=== PATIENT | female | born 2000 | race African-American/Black ===

== ENCOUNTER 2024-01-12 14:42 | Emergency (ER) | payer OTHER ==
[2024-01-12] MEDS ORDERED: ONDANSETRON 4 MG/2 ML VIAL ONE (15:13)
[2024-01-12] MEDS ORDERED: NA CHLORIDE 0.9% 1,000 ML ONE (15:13)
[2024-01-12 15:31] LABS: Absolute Lymphocytes (CBC) 2.8 K/uL (0.7-4.9); Absolute Monocytes 0.5 K/uL (0.1-1.3); Absolute Neutrophil 3.5 K/uL (1.8-8.0); Basophils % 0.5 % (0-1.3); Eosinophils % 0.7 % (0-4.4); Hematocrit 38.3 % (36.0-45.0); Hemoglobin 12.6 g/dL (12.0-15.0); Lymphocytes % 40.4 % (15.3-44.8); MCH 29.9 pg (27.0-35.0); MCHC 32.8 g/dL (32.0-36.0); MCV 91.4 fL (80-100); Monocytes % 7.1 % (3.3-12.3); Neutrophils % 51.3 % (41.7-73.7); Nucleated Red Blood Cells % 0.2 % (0-0); Platelets 386 thou/uL (152-406); RBC Red Blood Cell Count 4.19 M/uL (3.86-4.86); Red Cell Distribution Width 13.6 % (12.1-15.2)
[2024-01-12 15:53] LABS: Specific Gravity 1.026 (1.005-1.030); Urine Bacteria <20 /HPF (<20); Urine Bilirubin NEGATIVE (Negative); Urine Blood Negative (Negative); Urine Clarity Extremely Turbid (Clear); Urine Color Light-Yellow (Yellow); Urine Culture Reflex Order NOT NEEDED; Urine Glucose NEGATIVE (Negative); Urine Ketones 1+ (Negative); Urine Microscopic Reflex YN ORDER UMIC; Urine Mucus 1+ /HPF (None Seen); Urine Nitrite NEGATIVE (Negative); Urine Protein NEGATIVE (Negative); Urine RBC <5 /HPF (None Seen); Urine Urobilinogen Normal (Normal); Urine WBC <5 /HPF (<5)
[2024-01-12 15:54] LABS: Specific Gravity 1.026 (1.005-1.030)
[2024-01-12 15:58] LABS: Albumin 4.2 g/dL (3.4-5.0); Albumin/Globulin Ratio 1.1 (1.1-1.8); Anion Gap 9.3 mEq/L (5.0-15.0); Bilirubin Total 0.4 mg/dL (0.2-1.0); Globulin 3.9 g/dL (2.3-3.5); Potassium 3.3 mEq/L (3.5-5.1); Protein, Total 8.1 g/dL (6.4-8.2)
--- NOTE | 2024-01-12 16:21 | RAD REPORT ---
EXAM DESCRIPTION: CTAbdomen Pelvis W Contrast - 01/12/2024 4:16 pm CLINICAL HISTORY: Abdominal pain. nv, bloody stool COMPARISON: <Comparisons> TECHNIQUE: Biphasic CT imaging of the abdomen and pelvis was performed with 100 ml non-ionic IV cont rast. All CT scans are performed using dose optimization technique as appropriate and may include automated exposure control or mA/KV adjustment according to patient size. FINDINGS: The lung bases are clear. The liver, spleen, pancreas, adrenal glands and kidneys are within normal limits. No bowel obstruction, free air, intra-abdominal free fluid or abscess. Trace pelvic free fluid. The a ppendix is normal. No evidence of significant lymphadenopathy. No suspicious bony findings. IMPRESSION: No acute intra-abdominal or pelvic finding.
--- NOTE | 2024-01-12 17:07 | ER ---
Nurse's Notes [facility] Name: Maddie Patrick Age: 23 yrs Sex: Female : 2000 Arrival Date: 01/12/2024 Time: 14:42 Bed 15 Private MD: Diagnosis: Rectal bleeding Presentation: 01/11 14:56 Chief complaint: Patient states: N/V diarrhea and bloody stools since last night. rs5 Coronavirus screen: At this time, the client does not indicate any symptoms associated with coronavirus-19. Ebola Screen: No symptoms or risks identified at this time. Initial Sepsis Screen: Does the patient meet any 2 criteria? No. Patient's initial sepsis screen is negative. Does the patient have a suspected source of infection? No. Patient's initial sepsis screen is negative. Risk Assessment: Do you want to hurt yourself or someone else? Patient reports no desire to harm self or others. Onset of symptoms was January 12, 2024. 14:56 Method Of Arrival: Ambulatory rs5 14:56 Acuity: SHANT 3 rs5 Historical: - Allergies: 14:58 No Known Allergies; rs5 - PMHx: 14:58 PCOS; rs5 - PSHx: 14:58 None; rs5 - Immunization history:: Adult Immunizations up to date. - Infectious Disease History:: Denies. - Social history:: Smoking status: Patient denies any tobacco usage or history of. - Family history:: not pertinent. Screenin:51 [facility] ED Fall Risk Assessment (Adult) History of falling in the last 3 months, rs5 including since admission No falls in past 3 months (0 pts) Confusion or Disorientation No (0 pts) Intoxicated or Sedated No (0 pts) Impaired Gait No (0 pts) Mobility Assist Device Used No (0 pt) Altered Elimination No (0 pt) Score/Fall Risk Level 0 - 2 = Low Risk Oriented to surroundings, Maintained a safe environment. Abuse screen: Denies threats or abuse. Nutritional screening: No deficits noted. Tuberculosis screening: No symptoms or risk factors identified. Assessment: 14:50 General: Appears in no apparent distress. comfortable, Behavior is calm, cooperative. rs5 Pain: Denies pain. Neuro: Level of Consciousness is awake, alert, obeys commands, Oriented to person, place, time, situation. Cardiovascular: Patient's skin is warm and dry. Respiratory: Airway is patent Respiratory effort is even, unlabored, Respiratory pattern is regular, symmetrical. GI: Abdomen is round non-distended, Abd is soft and non tender X 4 quads. Reports diarrhea, nausea, bloody stools x4 starting last night. : No signs and/or symptoms were reported regarding the genitourinary system. EENT: No signs and/or symptoms were reported regarding the EENT system. Derm: Skin is intact, Skin is dry, Skin is normal, Skin temperature is warm. Musculoskeletal: Range of motion: intact in all extremities. 16:01 Reassessment: Patient and/or family updated on plan of care and expected duration. Pain rs5 level reassessed. Patient is alert, oriented x 3, equal unlabored respirations, skin warm/dry/pink. Patient states feeling better. 16:56 Reassessment: No changes from previously documented assessment. rs5 Vital Signs: 14:56 BP 117 / 83; Pulse 80; Resp 17; Temp 97.8(O); Pulse Ox 99% on R/A; rs5 16:56 BP 120 / 81; Pulse 71; Resp 17; Pulse Ox 99% on R/A; rs5 ED Course: 14:46 Patient arrived in ED. ra3 14:47 Herrera Wells MD is Attending Physician. rt 14:51 Patient has correct armband on for positive identification. Placed in gown. Bed in low rs5 position. Call light in reach. Side rails up X2. 14:52 Hernesto Bañuelos, SERJIO is Primary Nurse. rs5 14:58 Triage completed. rs5 15:10 Inserted saline lock: 22 gauge in right antecubital area, using aseptic technique. rs5 Blood collected. Flushed with 10 mL NS. 15:10 No provider procedures requiring assistance completed. rs5 16:17 CT Abd/Pelvis - IV Contrast Only In Process Unspecified. EDMS 17:06 Donato Bran MD is Referral Physician. rt 17:15 IV discontinued, intact, bleeding controlled, No redness/swelling at site. Pressure rs5 dressing applied. Administered Medications: 15:15 Drug: NS 0.9% IV 1000 ml IV at 1 bolus Per protocol; 1000 mL bolus Route: IV; Rate: 1 rs5 bolus; Site: right antecubital; 15:30 Follow up: Response: No adverse reaction rs5 15:15 Drug: Ondansetron IVP 4 mg IVP once; over 2 minutes Route: IVP; Site: right antecubital;rs5 15:35 Follow up: Response: No adverse reaction; Nausea is decreased rs5 Medication: 16:57 VIS not applicable for this client. rs5 Outcome: 17:06 Discharge ordered by . rt 17:15 Discharged to home ambulatory, rs5 17:15 Condition: stable rs5 17:15 Discharge instructions given to patient, family, Instructed on discharge instructions, follow up and referral plans. Demonstrated understanding of instructions, follow-up care, 17:17 Patient left the ED. rs5 Signatures: Dispatcher [employer] EDMS Herrera Wells MD MD rt Hernesto Bañuelos RN RN rs5 Noa Selby ra3
--- NOTE | 2024-01-12 17:07 | EDPHYS ---
Physician Documentation [facility] Name: Maddie Patrick Age: 23 yrs Sex: Female : 2000 Arrival Date: 01/12/2024 Time: 14:42 Bed 15 Private MD: ED Physician Herrera Wells HPI: 01/11 20:00 This 23 yrs old Black Female presents to ER via Ambulatory with complaints of Diarrhea rt - bloody. 20:00 Patient presents to the ED with nausea. Patient states that she had dark red stools. rt Denies hematemesis. Reports mild abdominal cramping but denies other abdominal pains. Denies other acute complaints, symptoms are moderate in severity, no other aggravating or alleviating factors.. Historical: - Allergies: 14:58 No Known Allergies; rs5 - PMHx: 14:58 PCOS; rs5 - PSHx: 14:58 None; rs5 - Immunization history:: Adult Immunizations up to date. - Infectious Disease History:: Denies. - Social history:: Smoking status: Patient denies any tobacco usage or history of. - Family history:: not pertinent. ROS: 20:00 Constitutional: Negative for fever, chills, and weight loss, Neck: Negative for injury, rt pain, and swelling, Cardiovascular: Negative for chest pain, palpitations, and edema, Respiratory: Negative for shortness of breath, cough, wheezing, and pleuritic chest pain, MS/Extremity: Negative for injury and deformity, Skin: Negative for injury, rash, and discoloration, 20:00 Abdomen/GI: Positive for nausea, rectal bleeding, Exam: 20:00 Constitutional: This is a well developed, well nourished patient who is awake, alert, rt and in no acute distress. Head/Face: Normocephalic, atraumatic. Chest/axilla: Normal chest wall appearance and motion. Nontender with no deformity. No lesions are appreciated. Cardiovascular: Regular rate and rhythm with a normal S1 and S2. No gallops, murmurs, or rubs. Normal PMI, no JVD. No pulse deficits. Respiratory: Lungs have equal breath sounds bilaterally, clear to auscultation and percussion. No rales, rhonchi or wheezes noted. No increased work of breathing, no retractions or nasal flaring. Abdomen/GI: Soft, non-tender, with normal bowel sounds. No distension or tympany. No guarding or rebound. No evidence of tenderness throughout. Skin: Warm, dry with normal turgor. Normal color with no rashes, no lesions, and no evidence of cellulitis. MS/ Extremity: Pulses equal, no cyanosis. Neurovascular intact. Full, normal range of motion. Neuro: Awake and alert, GCS 15, oriented to person, place, time, and situation. Cranial nerves II-XII grossly intact. Motor strength 5/5 in all extremities. Sensory grossly intact. Cerebellar exam normal. Normal gait. Vital Signs: 14:56 BP 117 / 83; Pulse 80; Resp 17; Temp 97.8(O); Pulse Ox 99% on R/A; rs5 16:56 BP 120 / 81; Pulse 71; Resp 17; Pulse Ox 99% on R/A; rs5 MDM: 15:02 Patient medically screened. rt 20:00 Differential diagnosis: Colitis, diverticulitis, hemorrhoid bleed. Data reviewed: vital rt signs, nurses notes, lab test result(s), radiologic studies. Consideration of Admission/Observation Escalation of care including admission/observation considered. Stable vital signs, H\T\H stable, no signs of upper GI bleed, stable for outpatient care, will treat empirically for colitis despite lack of CT evidence.. I considered the following discharge prescriptions or medication management in the emergency department Medications were administered in the Emergency Department. See MAR. Independent interpretation of the following test(s) in the Emergency Department CT Scan: My interpretation is No bowel obstruction syndrome interpretation of CT scan images. Care significantly affected by the following chronic conditions: PCOS. Counseling: I had a detailed discussion with the patient and/or guardian regarding the historical points, exam findings, and any diagnostic results supporting the discharge/admit diagnosis, lab results, radiology results, the need for outpatient follow up, to return to the emergency department if symptoms worsen or persist or if there are any questions or concerns that arise at home. 01/11 15:08 Order name: CBC with Diff; Complete Time: 15:58 rt 01/11 15:08 Order name: CMP; Complete Time: 15:58 rt 01/11 15:08 Order name: Lipase; Complete Time: 15:58 rt 01/11 15:08 Order name: Test, Urine; Complete Time: 15:58 rt 08 15:08 Order name: Urinalysis w/ reflexes; Complete Time: 15:58 rt 0803 15:08 Order name: CT Abd/Pelvis - IV Contrast Only; Complete Time: 16:35 rt 08 15:08 Order name: IV Saline Lock; Complete Time: 15:37 rt 08 15:08 Order name: Labs collected and sent; Complete Time: 15:37 rt Administered Medications: 15:15 Drug: NS 0.9% IV 1000 ml IV at 1 bolus Per protocol; 1000 mL bolus Route: IV; Rate: 1 rs5 bolus; Site: right antecubital; 15:30 Follow up: Response: No adverse reaction rs5 15:15 Drug: Ondansetron IVP 4 mg IVP once; over 2 minutes Route: IVP; Site: right antecubital;rs5 15:35 Follow up: Response: No adverse reaction; Nausea is decreased rs5 Disposition Summary: 01/12/24 17:06 Discharge Ordered Notes: Location: Home rt Problem: new rt Symptoms: are unchanged rt Condition: Stable rt Diagnosis - Rectal bleeding rt Followup: rt - With: Donato Bran MD - When: 5 - 6 days - Reason: Discharge Instructions: - Discharge Summary Sheet rt Forms: - Medication Reconciliation Form rt - Antibiotic Education rt - Prescription Opioid Use rt - Patient Portal Instructions rt - Leadership Thank You Letter rt Prescriptions: - Flagyl 500 mg Oral tablet - take 1 tablet ORAL route every 8 hours for 7 days; 21 tablet; Refills: 0, rt Product Selection Permitted - Cipro 500 mg Oral Tablet - take 1 tablet ORAL route every 12 hours for 7 days; 14 tablet; Refills: 0, rt Product Selection Permitted Signatures: Dispatcher [employer] EDMS Herrera Wells MD MD rt Hernesto Bañuelos RN RN rs5 Corrections: (The following items were deleted from the chart) 15:09 15:09 CBC+H.LAB.BRZ ordered. EDMS EDMS 15:09 15:09 COMPREHENSIVE METABOLIC PANEL+C.LAB.BRZ ordered. EDMS EDMS 15:09 15:09 LIPASE+C.LAB.BRZ ordered. EDMS EDMS 15:09 15:09 Test, Urine+UC.LAB.BRZ ordered. EDMS EDMS 15:09 15:09 Urinalysis+U.LAB.BRZ ordered. EDMS EDMS 15:09 15:09 Abdomen Pelvis W Con+CT.RAD.BRZ ordered. EDMS EDMS
[2024-01-12 18:09] VITALS: TEMP 97.8; O2SAT 99
[2024-01-12 18:15] VITALS: BP 120/81
== END 2024-01-12 17:17 | disposition home or self-care (01) ==
LOC: ER 14:42
DX: K62.5 Hemorrhage of anus and rectum (principal)
CPT/HCPCS: 85025; 81001; 36415; 81025; 83690; 80053; 74177; 96374; 99284; Q9967; J2405; J7030

== ENCOUNTER 2024-01-15 00:09 | Emergency (ER) | payer OTHER ==
[2024-01-15] MEDS ORDERED: ONDANSETRON 4 MG/2 ML VIAL ONE (01:00)
[2024-01-15] MEDS ORDERED: KETOROLAC 30 MG/ML INJ ONE (01:00)
[2024-01-15] MEDS ORDERED: FAMOTIDINE 20 MG/2 ML VIAL IV ONE (01:01)
[2024-01-15] MEDS ORDERED: NA CHLORIDE 0.9% 1,000 ML ONE (01:01)
[2024-01-15 07:20] LABS: Renal Epithelial <5 /HPF (None Seen); Specific Gravity 1.023 (1.005-1.030); Sqamous Epithelial <5 /HPF (None Seen); Urine Bacteria None Seen /HPF (<20); Urine Bilirubin NEGATIVE (Negative); Urine Blood Negative (Negative); Urine Clarity Clear (Clear); Urine Color Light-Yellow (Yellow); Urine Culture Reflex Order NOT NEEDED; Urine Glucose NEGATIVE (Negative); Urine Ketones TRACE (Negative); Urine Microscopic Reflex YN ORDER UMIC; Urine Mucus Slight /HPF (None Seen); Urine Nitrite NEGATIVE (Negative); Urine Protein NEGATIVE (Negative); Urine RBC None Seen /HPF (None Seen); Urine Urobilinogen Normal (Normal); Urine WBC <5 /HPF (<5); Urine pH 6.5 (5.0-7.0)
[2024-01-15 07:23] LABS: Albumin 4.2 g/dL (3.4-5.0); Albumin/Globulin Ratio 1.2 (1.1-1.8); Anion Gap 5.2 mEq/L (5.0-15.0); Bilirubin Total 0.4 mg/dL (0.2-1.0); Globulin 3.4 g/dL (2.3-3.5); Potassium 3.2 mEq/L (3.5-5.1); Protein, Total 7.6 g/dL (6.4-8.2)
[2024-01-15 07:32] LABS: Absolute Basophils 0.1 K/uL (0-0.5); Absolute Eosinophils 0.1 K/uL (0-0.5); Absolute Lymphocytes (CBC) 3.3 K/uL (0.7-4.9); Absolute Monocytes 0.7 K/uL (0.1-1.3); Absolute Neutrophil 3.4 K/uL (1.8-8.0); Basophils % 0.7 % (0-1.3); Eosinophils % 1.1 % (0-4.4); Hematocrit 34.2 % (36.0-45.0); Hemoglobin 11.3 g/dL (12.0-15.0); Lymphocytes % 43.9 % (15.3-44.8); MCH 29.7 pg (27.0-35.0); MCHC 33.2 g/dL (32.0-36.0); MCV 89.4 fL (80-100); MPV 8.8 fL (7.6-11.3); Monocytes % 9.2 % (3.3-12.3); Neutrophils % 45.1 % (41.7-73.7); Platelets 386 thou/uL (152-406); RBC Red Blood Cell Count 3.82 M/uL (3.86-4.86); Red Cell Distribution Width 13.4 % (12.1-15.2)
--- NOTE | 2024-01-15 12:14 | RAD REPORT ---
EXAM DESCRIPTION: CT ABDOMEN PELVIS WITH IV CONTRAST CLINICAL HISTORY: Female, 23 years old, Abd pain COMPARISON: 01/12/2024 (report only available at the time of dictation), 11/10/2023 TECHNIQUE: CT acquisition of the abdomen and pelvis following the administration of IV contrast. Cor onal and sagittal reformatted images provided. This exam was performed according to departmental dose -optimization program which includes automated exposure control, adjustment of the mA and/or kV accor ding to patient size, and/or use of iterative reconstruction technique. FINDINGS: SUPPORTIVE DEVICES: None. LOWER CHEST: Unremarkable. ABDOMEN AND PELVIS: Lack of intraperitoneal fat limits assessment. Liver: Normal. Gallbladder and bile ducts: Normal. Pancreas: Normal. Spleen: Normal. Adrenal glands: Normal. Kidneys and ureters: Normal. Bladder: Normal. Reproductive organs: Decreased size of the previous enlarged cystic-appearing right ovary now measuri ng 5.8 x 3 cm axially, previously 8.3 x 5.4 cm remeasured similarly on CT. A right corpus luteum cyst is present. Decreased mass effect on the uterus. The left ovary is unremarkable. GI tract: Normal caliber without wall thickening. Normal appendix. Lymph nodes: No evident adenopathy. Peritoneum: No evidence of ascites, fluid collection, or free air. Abdominal wall: No significant hernia. Vessels: Unremarkable. MUSCULOSKELETAL: No acute osseous abnormality. Redemonstrated chronic bilateral L5 pars defects with grade 1 L5-S1 anterolisthesis. IMPRESSION: 1. Decreased size of the previous right ovary/adnexa heterogeneous cystic lesion, sugg estive of resolving hydrosalpinx or complex cyst. 2. No new or additional acute finding. Electronically signed by: Channing Mancini MD 01/15/2024 04:33 AM CDT RP Due to temporary technical issues with the PACS/Fluency reporting system, reports are being signed by the in house radiologists without review as a courtesy to insure prompt reporting. The interpreting radiologist is fully responsible for the content of the report.
--- NOTE | 2024-01-15 17:01 | ER ---
Nurse's Notes [facility] Name: Maddie Patrick Age: 23 yrs Sex: Female : 2000 Arrival Date: 01/15/2024 Time: 00:09 Bed 3 Private MD: Diagnosis: Abdominal pain, unspecified Presentation: 01/14 00:35 Chief complaint: Patient states: WAS SEEN ON SUNDAY FOR FOR DIARRHEA WITH BLOOD IN jj7 HER STOOL. DX WITH EARLY STAGE COLITIS AND STARTED ON ANTIBIOTICS. NOW HAVING N/V AND CONSTIPATION. Coronavirus screen: At this time, the client does not indicate any symptoms associated with coronavirus-19. Ebola Screen: No symptoms or risks identified at this time. Initial Sepsis Screen: Does the patient meet any 2 criteria? No. Patient's initial sepsis screen is negative. Does the patient have a suspected source of infection? No. Patient's initial sepsis screen is negative. Risk Assessment: Do you want to hurt yourself or someone else? Patient reports no desire to harm self or others. Onset of symptoms was January 14, 2024. 00:35 Method Of Arrival: Ambulatory [facility] 00:35 Acuity: SHANT 3 jj7 Triage Assessment: 00:40 General: Appears in no apparent distress. comfortable, Behavior is calm, cooperative, jj7 appropriate for age. Pain: Complains of pain in abdomen. GI: Reports lower abdominal pain, upper abdominal pain, constipation, cramping, nausea, vomiting. 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 - Infectious Disease History:: Denies. - Social history:: Smoking status: Patient denies any tobacco usage or history of. Patient/guardian denies using alcohol, street drugs, IV drugs. Screenin:41 [facility] ED Fall Risk Assessment (Adult) History of falling in the last 3 months, jj7 including since admission No falls in past 3 months (0 pts) Confusion or Disorientation No (0 pts) Intoxicated or Sedated No (0 pts) Impaired Gait No (0 pts) Mobility Assist Device Used No (0 pt) Altered Elimination No (0 pt) Score/Fall Risk Level 0 - 2 = Low Risk Oriented to surroundings, Maintained a safe environment, Educated pt \T\ family on fall prevention, incl call for assistance when getting out of bed. Abuse screen: Denies threats or abuse. Nutritional screening: No deficits noted. Tuberculosis screening: No symptoms or risk factors identified. Assessment: 01:00 General: Appears in no apparent distress. comfortable, Behavior is calm, cooperative, rg5 appropriate for age. 01:00 Pain: Complains of pain in abdomen Pain currently is 5 out of 10 on a pain scale. rg5 Quality of pain is described as aching, Pain began gradually, 1 day ago. Is intermittent. Neuro: Level of Consciousness is awake, alert, obeys commands, Oriented to person, place, time. Cardiovascular: Denies chest pain, Capillary refill < 3 seconds Patient's skin is warm and dry. Rhythm is regular. Respiratory: Airway is patent Trachea midline Respiratory effort is even, unlabored, Respiratory pattern is regular. GI: Abdomen is round non-distended, Bowel sounds present in left lower quadrant Abd is soft and non tender X 4 quads. : Denies incontinence, pain urinary frequency. EENT: No deficits noted. Derm: Skin is intact, Skin is dry, Skin is normal, Skin temperature is warm. Musculoskeletal: Range of motion: intact in all extremities. 02:00 Reassessment: Patient and/or family updated on plan of care and expected duration. Pain ha1 level reassessed. Patient is alert, oriented x 3, equal unlabored respirations, skin warm/dry/pink. 02:55 Reassessment: Patient and/or family updated on plan of care and expected duration. Pain ha1 level reassessed. Patient is alert, oriented x 3, equal unlabored respirations, skin warm/dry/pink. 03:45 Reassessment: Patient and/or family updated on plan of care and expected duration. Pain rg5 level reassessed. Patient is alert, oriented x 3, equal unlabored respirations, skin warm/dry/pink. Patient states feeling better. Patient states symptoms have improved. Vital Signs: 00:35 BP 119 / 61; Pulse 60; Resp 17; Temp 98.4; Pulse Ox 100% ; Weight 61.23 kg; Height 4 jj7 ft. 11 in. ; Pain 5/10; 01:00 BP 100 / 60; Pulse 62; Resp 17; Temp 98; Pulse Ox 100% on R/A; Pain 5/10; rg5 02:00 BP 105 / 63; Pulse 62; Resp 17 S; Pulse Ox 99% on R/A; ha1 02:59 BP 101 / 67; Pulse 61; Resp 17 S; Pulse Ox 99% on R/A; ha1 03:45 BP 106 / 67; Pulse 68; Resp 17; Temp 98; Pulse Ox 99% on R/A; Pain 2/10; rg5 00:35 Body Mass Index 27.27 (61.23 kg, 149.86 cm) jj7 00:35 Pain Scale: Adult jj7 01:00 Pain Scale: Adult rg5 03:45 Pain Scale: Adult rg5 ED Course: 00:21 Patient arrived in ED. jj6 00:22 Brenda Scales PA-C is PHCP. sb4 00:22 Herrera Wells MD is Attending Physician. sb4 00:40 Triage completed. jj7 00:40 Arm band placed on left wrist. jj7 00:50 Ben Hampton RN is Primary Nurse. rg5 01:00 Bed in low position. Call light in reach. Side rails up X 1. rg5 01:00 Inserted saline lock: 20 gauge in right antecubital area, using aseptic technique. rg5 Blood collected. Flushed with 10 mL NS. 04:12 Provided Education on: post er care. rg5 04:12 No provider procedures requiring assistance completed. IV discontinued, bleeding rg5 controlled, No redness/swelling at site. Pressure dressing applied. Administered Medications: 01:00 Drug: NS 0.9% IV 1000 ml IV at 1 bolus Per protocol; 1000 mL bolus Route: IV; Rate: 1 rg5 bolus; Site: right antecubital; 01:00 Drug: Famotidine IVP 20 mg IVP once; dilute with 10 mL 0.9% NaCl; give over 2 minutes rg5 Route: IVP; Site: right antecubital; 01:35 Follow up: Response: No adverse reaction rg5 01:00 Drug: TORadol - Ketorolac IVP 15 mg IVP once Route: IVP; Site: right antecubital; rg5 01:36 Follow up: Response: Pain is decreased rg5 01:00 Drug: Ondansetron IVP 4 mg IVP once; over 2 minutes Route: IVP; Site: right antecubital;rg5 01:35 Follow up: Response: No adverse reaction rg5 Medication: 00:41 VIS not applicable for this client. jj7 Outcome: 04:07 Discharge ordered by . rt 04:12 Discharged to home ambulatory, rg5 04:12 Condition: stable 04:12 Discharge instructions given to patient, Instructed on discharge instructions, follow up and referral plans. 04:13 Patient left the ED. rg5 Signatures: Juliana Smith jj6 Veronica Couch RN RN ha1 Emily Farrell RN RN jj7 Brenda Scales, PA-C PA-C sb4 Herrera Wells MD MD rt Ben Hampton RN RN rg5
--- NOTE | 2024-01-15 17:01 | EDPHYS ---
Physician Documentation [facility] Name: Maddie Patrick Age: 23 yrs Sex: Female : 2000 Arrival Date: 01/15/2024 Time: 00:09 Bed 3 Private MD: ED Physician Herrera Wells HPI: 01/14 00:49 This 23 yrs old Black Female presents to ER via Ambulatory with complaints of sb4 Constipation, Nausea, Abdominal Pain. 00:49 patient states she was seen here 2 days ago with bloody diarrhea, was discharged with sb4 antibiotics. states since then, she has had abdominal pain, nausea, vomiting, and has not had a bowel movement. states her pain is in the epigastric region and lower abdomen diffusely. she denies any fever, chills, urinary complaints. reports compliance with the antibiotics she was prescribed. has not taken any antidiarrheal medication. 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 - Infectious Disease History:: Denies. - Social history:: Smoking status: Patient denies any tobacco usage or history of. Patient/guardian denies using alcohol, street drugs, IV drugs. ROS: 00:49 Constitutional: Negative for fever, chills, and weight loss, sb4 00:49 Abdomen/GI: Positive for abdominal pain, nausea and vomiting, constipation, 00:49 All other systems are negative, Exam: 00:49 Constitutional: This is a well developed, well nourished patient who is awake, alert, sb4 and in no acute distress. Head/Face: Normocephalic, atraumatic. Eyes: Extra-ocular motions intact. Periorbital areas with no swelling, redness, or edema. ENT: Mucous membranes moist. Cardiovascular: Regular rate and rhythm with a normal S1 and S2. Respiratory: Lungs have equal breath sounds bilaterally, clear to auscultation and percussion. No rales, rhonchi or wheezes noted. No increased work of breathing, no retractions or nasal flaring. Abdomen/GI: Soft, non-tender, no distension. Skin: Warm, dry with normal turgor. Normal color with no rashes, no lesions, and no evidence of cellulitis. MS/ Extremity: Pulses equal, no cyanosis. Neurovascular intact. Full, normal range of motion. Neuro: Awake and alert, GCS 15, oriented to person, place, time, and situation. Motor strength 5/5 in all extremities. Sensory grossly intact. Vital Signs: 00:35 BP 119 / 61; Pulse 60; Resp 17; Temp 98.4; Pulse Ox 100% ; Weight 61.23 kg; Height 4 jj7 ft. 11 in. ; Pain 5/10; 01:00 BP 100 / 60; Pulse 62; Resp 17; Temp 98; Pulse Ox 100% on R/A; Pain 5/10; rg5 02:00 BP 105 / 63; Pulse 62; Resp 17 S; Pulse Ox 99% on R/A; ha1 02:59 BP 101 / 67; Pulse 61; Resp 17 S; Pulse Ox 99% on R/A; ha1 03:45 BP 106 / 67; Pulse 68; Resp 17; Temp 98; Pulse Ox 99% on R/A; Pain 2/10; rg5 00:35 Body Mass Index 27.27 (61.23 kg, 149.86 cm) jj7 00:35 Pain Scale: Adult jj7 01:00 Pain Scale: Adult rg5 03:45 Pain Scale: Adult rg5 MDM: 00:26 Patient medically screened. sb4 04:23 Differential diagnosis: Abdominal pain, diarrhea, colitis, constipation. Data reviewed: rt vital signs, nurses notes, lab test result(s), radiologic studies. Consideration of Admission/Observation Escalation of care including admission/observation considered. Symptoms improving, vital signs are stable, labs are benign. Patient states that she does not wish to wait for results from CT scan. Plan to discharge patient pending callback no further complaints of shortness on the CTA.. I considered the following discharge prescriptions or medication management in the emergency department Medications were administered in the Emergency Department. See MAR. Independent interpretation of the following test(s) in the Emergency Department CT Scan: My interpretation is No bowel obstruction seen on interpretation of CT scan images. Care significantly affected by the following chronic conditions: PCOS. Counseling: I had a detailed discussion with the patient and/or guardian regarding the historical points, exam findings, and any diagnostic results supporting the discharge/admit diagnosis, lab results, radiology results, the need for outpatient follow up, to return to the emergency department if symptoms worsen or persist or if there are any questions or concerns that arise at home. Response to treatment: the patient's symptoms have markedly improved after treatment. 01/14 00:48 Order name: CT Abd/Pelvis - IV Contrast Only sb4 01/14 00:48 Order name: IV Saline Lock; Complete Time: 00:58 sb4 01/14 00:48 Order name: Labs collected and sent; Complete Time: :08 sb4 Administered Medications: 01:00 Drug: NS 0.9% IV 1000 ml IV at 1 bolus Per protocol; 1000 mL bolus Route: IV; Rate: 1 rg5 bolus; Site: right antecubital; 01:00 Drug: Famotidine IVP 20 mg IVP once; dilute with 10 mL 0.9% NaCl; give over 2 minutes rg5 Route: IVP; Site: right antecubital; 01:35 Follow up: Response: No adverse reaction rg5 01:00 Drug: TORadol - Ketorolac IVP 15 mg IVP once Route: IVP; Site: right antecubital; rg5 01:36 Follow up: Response: Pain is decreased rg5 01:00 Drug: Ondansetron IVP 4 mg IVP once; over 2 minutes Route: IVP; Site: right antecubital;rg5 01:35 Follow up: Response: No adverse reaction rg5 Disposition: 04:23 Co-signature as Attending Physician, Herrera Wells MD I reviewed the patient's care rt provided by Advanced Practice Provider \T\ agree w/ the diagnosis \T\ care plan. I personally saw the pt \T\ performed a substantive portion of the visit, incldng all aspects of the (History/Exam/Medical Decision Making). Disposition Summary: 01/15/24 04:07 Discharge Ordered Notes: Location: Home rt Problem: an ongoing problem rt Symptoms: have improved rt Condition: Stable rt Diagnosis - Abdominal pain, unspecified rt Followup: rt - With: Private Physician - When: 2 - 3 days - Reason: Discharge Instructions: - Discharge Summary Sheet rt - Abdominal Pain, Adult rt Forms: - Medication Reconciliation Form rt - Antibiotic Education rt - Prescription Opioid Use rt - Patient Portal Instructions rt - Leadership Thank You Letter rt Signatures: Dispatcher [employer] Emily Cisneros, RN RN jj7 Brenda Scales PA-C PA-C sb4 Herrera Wells MD MD rt Ben Hampton RN RN rg5
[2024-01-15 23:46] VITALS: O2SAT 99
[2024-01-15 23:49] VITALS: BP 106/67; TEMP 98
== END 2024-01-15 04:13 | disposition home or self-care (01) ==
LOC: ER 00:09
DX: R10.30 Lower abdominal pain, unspecified (principal); R11.2 Nausea with vomiting, unspecified; K59.00 Constipation, unspecified
CPT/HCPCS: 85025; 81001; 36415; 81025; 83690; 80053; 74177; Q9967; J2405; J7030; 96374; 96375; 99284

== ENCOUNTER 2024-09-17 10:34 | Emergency (ER) | payer OTHER ==
--- OUTSIDE RECORDS SUMMARY | 2024-09-17 10:38 | XMS REPORT | Continuity of Care Document ---
Author Name Unknown Address [address] [facility] [address] [place] [address] [address] [facility] Address [address] [facility] [address] [place] [address] Care Team Providers Care Grinder Set Up Operator External Name Role Phone Willard Anderson Attending Clinician Unavailable DR SHARA COSME Attending Clinician DR SHARA Brown Attending Clinician John Buckner Attending Clinician UnavailAj Coleman Attending Clinician Unavailable LIBBY LEWIS Attending Clinician DR FRANTZ Jordan Admitting Clinician Aj Sharma Admitting Clinician Unavailable DR SHARA COSME Admitting Clinician Lulu pedro Payers Payer Name Policy Type Policy Number Effective Date Expirati on Date Source 0313 [id number] 1961 00:00:00 Problems Condition Name Condition Details Condition Category Status Onset Date Resolution Date Last Treatment Date Treating Clinician Comments Source Irregular menses Irregular menses Active Diagnosis 02/10/2021 Kit Schettler Diagnosis Active 2021-02-10 02:45:48 Zander Mark Encounter for screening for malignant neoplasm of cervix Encounter for screening for malignant neoplasm of cervix Active Diagnosis 02/10/2021 Kit Schettler Diagnosis Active 2021-02-10 02:45:48 Zander Mark Encounter for screening for infections with a predominan tly sexual mode of transmissi on Encounter for screening for infections with a predominan tly sexual mode of transmissi on Active Diagnosis 02/10/2021 Kit Stanford Diagnosis Active 2021-02-10 02:45:48 Memoria marcelina Mark Atypical squamous cells of undetermin ed significan ce on cytologic smear of cervix (ASC-US) Atypical squamous cells of undetermin ed significan ce on cytologic smear of cervix (ASC-US) Active Problem 02/10/2021 Kiteagle Uriosteguiler Problem Active 2021-02-10 02:45:48 Memoria marcelina Mark Secondary amenorrhea Secondary amenorrhea Active Diagnosis 02/10/2021 [facility] Uriosteguiler Diagnosis Active 2021-02-10 02:45:48 Zander Mark Allergies, Adverse Reactions, Alerts Allergy Name Allergy Type Status Severity Reaction(s) Onset Date Inactive Date Treating Clinician Comments Source No Known Allergie s DA Active U 2022-06 00:00: 00 [facility] N.K.D.A. N.K.D.A. Active Info Not Available 06-25 00:00: 00 Zander Mark No Known Allergie s DA Active [facility] Vital Signs Vital Name Observation Time Observation Value Comments S ource Height 2023-11-10 00:49:00 147.32 CM Weight 2023-11-10 00:49:00 61 KG Height 2023-11-10 00:49:00 147.32 CM Weight 2023-11-10 00:49:00 61 KG Diastolic (mm Hg) 2020-06-25 16:00:00 [facility] Systolic (mm Hg) 2020-06-25 16:00:00 [facility] Weight 2020-06-25 16:00:00 [facility] Height 2020-06-25 16:00:00 [facility] Temperature Oral (F) 2020-06-25 16:00:00 97.7 F [facility] Encounters Start Date/Time End Date/Time Encounter Type Admission Type Attending Clinicians Care Facility Care Department Encounter ID Source 2023-11-10 00:44:00 Inpatient E [facility] [id number] [facility] 2022-01-26 11:31:08 Outpatient [facility] [id number] [facility] 2023-11-10 04:35:00 2023-11-10 04:35:00 Emergency E BASHARA DAVID [facility] [id number] [facility] 2023-06-09 07:57:00 2023-06-09 09:25:00 Emergency EM Aj Siddiqi [facility] [id number] [facility] 2021-11-14 21:46:00 2021-11-15 01:09:00 Emergency E LIBBY LEWIS [facility] [address] [facility] l Results Test Description Test Time Test Comments Results Result Co mments Source POC,HCG URINE, [id number] 10:53:00* Test Item Value Reference Range Interpretation Comme nts POC,HCG URINE, QUALITATIVE ( test code = EDHCGU) NEGATIVE Negative URINALYSIS [id number] 13:39:00* Test Item Value Reference Range Interpretation Comme nts POC,URINE COLOR (test code = EDCOLU) Dark yellow Yellow A Testing Per formed at:[facility] ER 01/[id number], [place] [address] -------- POC URINE CLARITY (test code = EDCLARITY) Slightly Cloudy Clear A POC,URINE GLUCOSE (test code = EDGLUU) Negative Negative POC,URINE BILIRUBIN (test code = EDBILIU) Negative Negative POC,URINE KETONES (test code = EDKETU) Trace Negative A POC,URINE SPECIFIC GRAVITY (test code = EDSGU) >= 1.030 1.001-1.035 N POC,URINE BLOOD (test code = EDBLDU) Large Negative A POC,URINE pH (test code = EDPH) 5.5 5.0-8.0 N POC,URINE PROTEIN (test code = EDPROTU) Trace Negative A POC,URINE UROBILINOGEN (test code = EDURO) 0.2 0.2-1.0 POC,URINE NITRITE (test code = EDNIT) Negative Negative POC,URINE LEUKOCYTE ESTERASE (test code = EDLEUK) Trace Negative A POC,HCG URINE, [id number] 13:39:00* Test Item Value Reference Range Interpretation Comme nts POC,HCG URINE, QUALITATIVE (test code = EDHCGU) Negative Negative Testing Performe d at:[facility] 01/[id number], [place] [address] CBC W/AUTO [id number] 13:38:00* Test Item Value Reference Range Interpretation Comme nts WHITE BLOOD CELL (test code = WBC) 8.9 10E9/L 3.8-9.8 N RED BLOOD CELL (test code = RBC) 3.6 10E12/L 3.95-5.67 L HEMOGLOBIN (test code = HGB) 10.7 g/dL 12.4-16.7 L HEMATOCRIT (test code = HCT) 32.2 % 35.9-49.5 L MEAN CELL VOLUME (test code = MCV) 90.7 fL 81.7-96.1 N MEAN CELL HGB (test code = MCH) 30.1 pg 27.6-33.2 N MEAN CELL HGB CONCETRATION ( test code = MCHC) 33.2 % 32.9-35.5 N RED CELL DISTRIBUTION WIDTH (test code = RDW) 13.8 % 12.1-15.2 N PLATELET COUNT (test code = PLT) 492 10E9/L 129-368 H MEAN PLATELET VOLUME (test c ode = MPV) 9.5 fL 7.4-10.4 N NEUTROPHIL % (test code = NT%) 49.4 % 43-75 N LYMPHOCYTE % (test code = LY%) 43.3 % 14-44 N MIXED % (test code = MX%) 7.3 % 4.0-12.0 N NEUTROPHIL # (test code = NT#) 4.4 10E3/uL 2.0-7.6 N LYMPHOCYTE # (test code = LY#) 3.9 10E3/uL 1.0-3.8 H MIXED # (test code = MX#) 0.6 10E3/uL 0.1-1.2 N COMPREHENSIVE METABOLIC [id number] 13:37:00* Test Item Value Reference Range Interpretation Comme nts POC,SODIUM (test code = TIM) 138 mmol/L 128-145 N Testing Performe d at:[facility] 01[id number] [place] [address] POC,POTASSIUM (test code = EDK) 4.1 mmol/L 3.6-5.1 N POC,CHLORIDE (test code = EDCL) 111 mmol/L 98-108 H POC,TCO2 (test code = EDTCO2) 27 mmol/L 18-33 N POC,ANION GAP (test code = EDAGAP) 0 mmol/L 4-14 L POC,BUN (test code = EDBUN) 13 mg/dL 7-22 N POC,CREATININE (test code = EDCRE) 0.6 mg/dL 0.6-1.2 N POC,GLUCOSE (test code = EDGLUC) 90 mg/dL 73-118 N POC,CALICIUM (test code = EDCA) 8.9 mg/dL 8.0-10.3 N POC,eGFR (test code = EDGFR) 128 mL/min >=60 eGFR is not calc ulated if age <18 yrs, if the sex in EHR islisted as unknown or the creatinine level is below assayrange.This result value is determined by the eGFR 202 CKD-EPIformula using serum creatinine, age and sex, excluding arace coefficient. The assay for creatinine is traceable tothe IDMS reference method. Chronic kidney disease (CKD) maynot be detectable based solely on creatinine levels. A eGFR> 60 does not rule out mild renal disease. To distinguishnormal renal function from mild renal disease, furtherlaboratory testing may be required. POC,ALBUMIN (test code = EDALB) 3.5 g/dL 3.3-5.5 N POC,TOTAL PROTEIN (test code = EDTP) 6.6 g/dL 6.4-8.1 N POC,BILIRUBIN TOTAL (test code = EDTBIL) 0.4 mg/dL 0.2-1.6 N POC,AST (test code = EDAST) 19 U/L 11-38 N POC,ALT (test code = EDALT) 19 U/L 10-47 N POC,ALKALINE PHOSPHATASE (test code = EDALP) 38 U/L 42-141 L - DUP AB/PEL/SC [id number] 00:51:00 [facility] 2000 Sex: F Patient Name: REINALDO DOWNING Unit No: [id number] Report Has Been Amended EXAMS: CPT CODE: [id number] AB/PEL/SC LTD 49959 Addendum - 11/23/2023 SIGNED 11/23/2023 ADDENDUM: [id number] US/DUPAPSLTD Correction to impression. Findings could represent a partially or completely ruptured right hemorrhagic ovarian cyst. at 0051 Reported and signed by: Ha Abraham MD Transcribed: 11/23/2023 (005) [email or web address] Report PELVIC ULTRASOUND COMPLETE AND TRANSVAGINAL: CLINICAL HISTORY: Pelvic pain FINDINGS: 2-D grayscale, pulsewave, and/or color Doppler was performed. Transabdominal and transvaginal images were obtained. The uterus measures 61 x 30 mm. No transverse measurement submitted. The endometrial echo complex is normal in thickness measuring 2 mm. The right ovary measures 50 x 42 x 47 mm. There are multiple complex appearing small follicles in the right ovary, which are difficult to measure discretely. Doppler flow is seen within the ovary. The left ovary measures 30 x 20 x 27 mm. Doppler flow is present. There is a moderate to large amount of complex free fluid in the pelvis, which could be hemorrhagic in nature. IMPRESSION: Enlarged right ovary containing multiple complex appearing follicles. Some of these could be hemorrhagic in nature. Doppler flow is seen in the ovary. There is also a moderate to large amount of c omplex free fluid in the pelvis, which could be hemorrhagic. Findings could represent a partially Follow-up pelvic ultrasound in 6-12 weeks recommended. at 0033 Reported and signed by: MD JOHN Carrero FSED NAME: REINALDO DOWNING [id number] PHYS: Willard Junior MD : 2000 AGE: 23 SEX: [place] [address] LOC: NAM PHONE #: EXAM DATE: 11/22/2023 STATUS: REG ER FAX #: RADIOLOGY NO: PAGE 1 Signed Report (CONTINUED) Patient Name: REINALDO DOWNING Unit No: [id number] ReportHas Been Amended EXAMS: CPT CODE: [id number] DUP AB/PEL/SC LTD 72522 (Continued) CC: Willard perez MD Technologist: [id number]; ROSA SAENZ Transcrpt Date/Tm/Trnsp: 11/23/2023 (0033) [email or web address] Orig Print D/T: S: 11/23/2023 (003) JOHN FSED NAME: REINALDO DOWNING [id number] PHYS: Willard Junior MD : 2000 AGE: 23 SEX: [place] [address] LOC: FelipeABRAHAMAntwan PHONE #: EXAM DATE: 11/22/2023 STATUS: REG ER FAX #: RADIOLOGY NO: PAGE 2 Signed Report- US PELVIS [id number] 00:51:00 [facility] : 2000 Sex: F Patient Name: REINALDO DOWNING Unit No: [id number] Report Has Been Amended EXAMS: CPT CODE: [id number] US PELVIS COMPLETE [id number] Addendum - 11/23/2023 SIGNED 11/23/2023 ADDENDUM: [id number] US/USPELNOBCCorrection to impression. Findings could represent a partially or completely ruptured right hemorrhagic ovarian cyst. at 0051 Reported and signed by: Ha Abraham MD Transcribed: 11/23/2023 (005) [email or web address] Report PELVIC ULTRASOUND COMPLETE AND TRANSVAGINAL: CLINICAL HISTORY: Pelvic pain FINDINGS: 2-D grayscale, pulsewave, and/or color Doppler was performed. Transabdominal and transvaginal images were obtained. The uterus measures 61 x 30 mm. No transverse measurement submitted. The endometrial echo complex is normal in thickness measuring 2 mm. The right ovary measures 50 x 42 x 47 mm. There are multiple complex appearing small follicles in the right ovary, which are difficult to measure discretely. Doppler flow is seen within the ovary. The left ovary measures 30 x 20 x 27 mm. Doppler flow is present. There is a moderat e to large amount of complex free fluid in the pelvis, which could be hemorrhagic in nature. IMPRESSION: Enlarged right ovary containing multiple complex appearing follicles. Some of these could be hemorrhagic in nature. Doppler flow is seen in the ovary. There is also a moderate to large amount of complex free fluid in the pelvis, which could be hemorrhagic. Findings could represent a partially Follow-up pelvic ultrasound in 6-12 weeks recommended. at 0033 Reported and signed by: Ha Abraham MD [facility] NAME: REINALDO DOWNING [id number] PHYS: Willard Junior MD : 2000 AGE: 23 SEX: [place] [address] LOC: NAM PHONE #: EXAM DATE: 11/22/2023 STATUS: REG ER FAX #: RADIOLOGY NO: PAGE 1 Signed Report (CONTINUED) Patient Name: REINALDO DOWNING Unit No: [id number] Report Has Been Amended EXAMS: CPT CODE: [id number] US PELVIS COMPLETE 10288 (Continued) CC: Willard baca MD; Aj Siddiqi MD Technologist: [id number]; ANOSAMANTHA SAENZ Transcrpt Date/Tm/Trnsp: 11/23/2023 (0033) [email or web address] Orig Print D/T: S: 11/23/2023 (0036) JOHN FSED NAME: REINALDO DOWNING [id number] PHYS: Willard Junior MD : 2000 AGE: 23 SEX: [place] [address] LOC: NAM PHONE #: EXAM DATE: 11/22/2023 STATUS: REG ER FAX #: RADIOLOGY NO: PAGE 2 Signed Report- US TRANSVAGINAL NON [id number] 00:51:00 [facility] : 2000 Sex: F Patient Name: REINALDO DOWNING Unit No: [id number] Report Has Been Amended EXAMS: CPT CODE: [id number] [place] [address] Addendum - 11/23/2023 SIGNED 11/23/2023 ADDENDUM: [id number] US/USTRANSV Correction to impression. Findings could represent a partially or completely ruptured right hemorrhagic ovarian cyst. at 0051 Reportedand signed by: Ha Abraham MD Transcribed: 11/23/2023 (50) [email or web address] Report PELVIC ULTRASOUNDCOMPLETE AND TRANSVAGINAL: CLINICAL HISTORY: Pelvic pain FINDINGS: 2-D grayscale, pulsewave, and/orcolor Doppler was performed. Transabdominal and transvaginal images were obtained. The uterus measures 61 x 30 mm. No transverse measurement submitted. The endometrial echo complex is normal in thickness measuring 2 mm. The right ovary measures 50 x 42 x 47 mm. There are multiple complex appearingsmall follicles in the right ovary, which are difficult to measure discretely. Doppler flow is seenwithin the ovary. The left ovary measures 30 x 20 x 27 mm. Doppler flow is present. There is a moderate to large amount of complex free fluid in the pelvis, which could be hemorrhagic in nature. IMPRESSION: Enlarged right ovary containing multiple complex appearing follicles. Some of these could behemorrhagic in nature. Doppler flow is seen in the ovary. There is also a moderate to large amount of complex free fluid in the pelvis, which could be hemorrhagic. Findings could represent a partially Follow-up pelvic ultrasound in 6-12 weeks recommended. at 0033 Reported and signed by: Ha Abraham MD [facility] NAME: REINALDO DOWNING [id number] PHYS: Willard Junior MD : 2000 AGE: 23 SEX: [place] [address] LOC: NAM PHONE #: EXAM DATE: 11/22/2023 STATUS: REG ER FAX #: RADIOLOGY NO: PAGE 1 Signed Report (CONTINUED) Patient Name: REINALDO DOWNING Unit No: [id number] Report Has Been Amended EXAMS: CPT CODE: [id number] [place] [address] (Continued) CC: Willard Anderson MD; Aj Siddiqi MD Technologist: [id number]; ANOSAMANTHA DANY Transcrpt Date/Tm/Trnsp: 11/23/2023 (0033) [email or web address] Orig Print D/T: S: 11/23/2023 (0036) JOHN FSED NAME: ANGELINE [address] PHYS: CABAMANDA - Willard Anderson MD : 2000 AGE: 23 SEX: [place] [address] LOC: NAM PHONE #: EXAM DATE: 11/22/2023 STATUS: REG ER FAX #: RADIOLOGYNO: PAGE 2 Signed ReportU/S [id number] 04:20:13 [facility] : 2000 Sex: FEXAMINATION:U/S PELVISCLINICAL INDICATION:Female, 23 years old with Abdominal painCOMPARISON: NoneTECHNIQUE:Transabdominal imaging of the pelvis is performed utilizing grayscale, color Doppler, and spectral waveform analysis.FINDINGS:Uterus: The uterus measures 8.1 cm x 3.3 cm x 3.9cm, uterine echotexture is homogeneous. The endometrium measures 8mm, demonstrating homogeneous echotexture. No focal uterine mass lesions are visualized.Cervix: No focal cervical masses are seen.Ovaries: The right ovary 10.4 cm x 4.3 cm x 5.1 cm. The left ovary measures 4.7 cm x 2.1 cm x 2.6 cm. Both ovaries demonstrate appropriate arterial waveforms. The right ovary is enlarged secondary to possible possible blood products along its posterior border. There may be hematoma present, is difficult to discern with ultrasound.Pelvis: There is minimal free fluid in the pelvis.IMPRESSION:1. Enlarged right ovary with possible blood products along its posterior border. 2. No evidence of ovarian torsion.Electronically signed by: Mikel Nicholson MD 11/10/2023 04:20 AM CDT RP ABDOMEN AND PELVIS WITH [id number] 02:34:33 [facility] : 2000 Sex: FExam: CT abdomen and pelvis with contrast.Location: H 12History: Abdominal painComparison:None.Technique: Enhanced spiral slices were taken from the domes of the diaphragm, through the pubic symphysis. Sagittal and coronal images, and where appropriate MIP reformations were performed. One or more of the following dose reduction techniques were used: Automated exposure control, adjustment of the mA and/or kV according to patient size, and/or utilization of iterative reconstruction technique. Comments: Unless otherwise specified, incidental findings do not require dedicated imaging follow-up.Findings:Lung bases: The lungs are clear. Gallbladder: The gallbladder is unremarkable. No wall thickening or pericholecystic fluid is seen. Hepatobiliary: The liver is of normal, homogeneous density. The intra-andextrahepatic biliary tree is normal. The hepatic and portal veins are patent. Spleen: The spleen isnormal in size and shape.Pancreas: The pancreas is normal. The pancreatic duct is normal in caliber. Kidneys and ureters: The kidneys are unremarkable. No perinephric fluid collections or hydronephrosis is seen.Adrenal glands: The adrenal glands arenormal in size and shape.Bowel: The large and small intestine are normal in caliber. The appendix is normal.Peritoneum: No lymphadenopathy is seen. Nofree fluid is seen.Pelvis: There is a 7.6 x 6.0 cm complex lesion right adnexa. The uterus and leftadnexa are unremarkable.Vascular: The aorta is unremarkable. The IVC is patent. Bones/soft tissues:No significant abnormality.Impression: 1. 7.6 x 6.0 cm complex right adnexal lesion. Sonography is recommended to further evaluate this finding and exclude torsion.2. Otherwise unremarkable exam.Elect ronically signed by: Frantz Rapp MD 11/10/2023 02:34 AM CDT RP [id number] 01:57:00* Test Item Value Reference Range Interpretation Comme nts COLOR (test code = COLU) YELLOW YELLOW CLARITY (test code = CLA) CLEAR CLEAR GLUCOSE UR (test code = UA GLUCOSE) NEGATIVE NEGATIVE BILI UR (test code = BILE) NEGATIVE NEGATIVE KETONES UR (test code = LEE) NEGATIVE NEGATIVE SP GRAVITY (test code = SPGR) 1.014 1.005-1.030 PH UR (test code = PH) 7.0 4.5-8.0 PROTEIN UR (test code = PU) NEGATIVE NEGATIVE UROBIL UR (test code = UROQ) 0.2 EU/dL 0.2-1.0 NITRITE UR (test code = NITRITE) NEGATIVE NEGATIVE BLOOD UR (test code = UA BLOOD) NEGATIVE NEGATIVE LEUK ES UR (test code = LEUK) NEGATIVE NEGATIVE AMYLASE AND [id number] 01:37:00* Test Item Value Reference Range Interpretation Comme nts AMYLASE (test code = 10A) 183 U/L 30-118 H LIPASE (test code = 60A) 54 IU/L 12-53 H COMPREHENSIVE METABOLIC [id number] 01:37:00* Test Item Value Reference Range Interpretation Comme nts GLUCOSE (test code = 06D) 91 mg/dL 75-100 SODIUM (test code = 01A) 139 mmol/L 136-145 POTASSIUM (test code = 01B) 3.9 mmol/L 3.6-5.1 CHLORIDE (test code = 04A) 110 mmol/L 98-107 H CO2 (test code = 02A) 23 mmol/L 20-31 ANION GAP (test code = ANG) 10.2 mmol/L BUN (test code = 05D) 12 mg/dL 9-23 CREATININE (test code = 03E) 0.7 mg/dL 0.6-1.0 GFR (test code = GFR) 124 mL/min/1.73m\S\2 >=90 EGFR (test code = EGFR) eGFR BY CKD-EPI CALCULATION IS NOT RECOMMENDED FOR PATIENTS UNDER 18 YEARS OF AGE. BUN/CREA (test code = BCR) 18 12-20 CALCIUM (test code = 09D) 9.2 mg/dL 8.3-10.6 BILI TOTAL (test code = 11A) 0.4 mg/dL 0.2-1.0 PROTEIN (test code = 07D) 6.9 g/dL 5.7-8.2 ALBUMIN (test code = 08D) 4.4 g/dL 3.2-4.8 GLOBULIN (test code = GLB) 2.5 g/dL 1.5-3.8 ALB/GLOB (test code = AGRR) 1.8 1.0-2.6 ALK PHOS (test code = 35A) 46 IU/L 46-116 AST (test code = 30A) 14 IU/L <=33 ALT (test code = 31A) 11 IU/L 10-49 SERUM [id number] 01:30:00* Test Item Value Reference Range Interpretation Comme nts PREG SRM (test code = PGS) NEGATIVE NEGATIVE CBC (INCLUDES AUTOMATED DIFFERENTIAL)2023-11-10 01:19:00* Test Item Value Reference Range Interpretation Comme nts WBC (test code = WBC) 9.1 10\S\3/uL 4.5-11.0 RBC (test code = RBC) 3.84 10\S\6/uL 4.30-5.70 L HGB (test code = HBG) 11.3 g/dL 12.0-15.5 L HCT (test code = HCT) 34.9 % 35.0-44.0 L MCV (test code = MCV) 90.9 fL 81.0-99.0 MCH (test code = MCH) 29.4 pg 27.0-31.0 MCHC (test code = MCHC) 32.4 g/dL 32.0-36.0 RDW (test code = RDW) 13.9 % 11.5-14.5 PLT (test code = PLT) 420 10\S\3/uL 130-400 H MPV (test code = MPV) 9.8 fL 9.4-12.4 NEUTROP # (test code = NE#) 4.1 10\S\3/uL 1.6-8.0 LYMPH # (test code = LY#) 4.1 10\S\3/uL 1.1-3.5 H MONOCYTE # (test code = MO#) 0.7 10\S\3/uL 0.0-1.1 EOSINOPH # (test code = EO#) 0.1 10\S\3/uL 0.0-0.7 BASOPHIL # (test code = BA#) 0.0 10\S\3/uL 0.0-0.3 IG # (test code = IG#) 0.02 10\S\3/uL 0.00-0.06 NRBC # (test code = NRBC#) 0.00 10\S\3/uL 0.00-0.01 NEUTROPH % (test code = NE%) 45.7 % 35.0-73.0 LYMPH % (test code = LY%) 45.1 % 20.0-55.0 MONO % (test code = MO%) 7.5 % 2.5-10.0 EOSINOPH % (test code = EO%) 1.1 % 0.0-5.0 BASOPHIL % (test code = BA%) 0.4 % 0.0-2.0 IG % (test code = IG%) 0.2 % 0.0-0.8 NRBC% (test code = NRBC%) 0.0 % 0.0-0.2 MANDIFF (test code = MDIFF) NO RBC MORPH (test code = RBCMOR) NORMAL Notes Date/Time Note Provider Source 2023-11-22 22:23:00 [facility] ([facility]) EMERGENCY PROVIDER REPORT REPORT#:[id number] REPORT STATUS: Signed DATE:11/22/23 TIME: 2222 PATIENT: REINALDO DOWNING UNIT #: [id number] ROOM/BED: AGE: 23 SEX: F PCP PHYS: No Primary or Family Physician SERVICE AUTHOR: Willard Adnerson MD LOCATION: [facility] * ALL edits or amendments must be made on the electronic/computer document * HPI-General Illness General Initial Greet Date/Time 11/22/232142 Presentation Chief Complaint Abdominal pain, Vaginal bleeding Free Text HPI Notes Free Text HPI Notes 23-year-old female with a history of PCOS who has seen endocrinology reportedly had an ovarian cyst which ruptured about 3 weeks ago she had an ultrasound in the emergency room which she states verified that. Last menstrual period was November 12. Patient states her pain is similar to that. She is having some vaginal bleeding. She has had no surgeries no allergies on no medications does not smoke drink or do any drugs has had no fever no trauma no chills no dysuria no shortness of breath no chest pain no cough no nausea or vomiting Review of Systems Free Text ROS Notes Free Text ROS Notes Constitutional: [No fever or chills; no malaise] HEENT: [No Headache, no earache, no sore throat, no eye complaints.] Chest: [No cough, no shortness of breath, no chest pain.] Abdomen: [Suprapubic abdominal pain. No nausea, vomiting, or diarrhea.] : [No dysuria; some mild vaginal bleeding] Extremities: [No leg swelling or leg pain. No upper extremity pain or swelling.] Skin: [No rash. No erythema.] Neuro: [No acute weakness, numbness or other new neuro complaints.] Psych: [No suicidal ideation; Thought content normal.] Past Medical History - Adult Stated Complaint OVARIAN CYST Allergies Coded Allergies: No Known Allergies (06/09/23) Home Medications Active Scripts FLUCONAZOLE 150 MG PO Q72HR FLUCONAZOLE 150 MG PO Q72HR #2 TAB Prov: 06/09/23 NITROFURANTOIN/NITROFURAN MAC (MACROBID) 100 MG PO BID NITROFURANTOIN/NITROFURAN MAC (MACROBID) 100 MG PO BID #10 CAPS Prov: 10/30/23 Pt reports no significant: Past surgical history Additional Medical History Ruptured ovarian cyst, PCOS for which she has endocrinology; Physical Exam Vital Signs Vital Signs First Documented: Result Date Time Pulse Ox 100 11/22 2139 B/P 102/56 11/22 2139 B/P Mean 71 11/22 2139 O2 Delivery Room air 11/22 2139 Temp 36.8 11/22 2139 Pulse 65 11/22 2139 Resp 20 11/22 2139 Last Documented: Result Date Time Pulse Ox 99 11/22 118 B/P 114/80 11/22 118 B/P Mean 91.5 11/22 118 Temp 36.6 11/22 118 Pulse 60 11/22 118 Resp 16 11/22 118 O2 Delivery Room air 11/22 2139 Review of Vital Signs Reviewed, Vital signs normal Free Text PE Notes Free Text PE Notes General: Well developed, well nourished, no apparent distress Vital Signs: Reviewed HEENT: Normo-cephalic, atraumatic, pupils are symmetric; [no] conjunctival injection or icterus, normal orophayrnx, mucosa is moist. No ear discharge or swelling. Neck: Supple, no JVD, no lymphadenopathy Chest: [Clear] on auscultation bilaterally. No tachypnea. Normal work of breathing CV: [Regular] rate and rhythm. [No] murmur. [No] rubs or gallops. Abdomen: Soft, tender suprapubic, left lower quadrant right lower quadrant negative Pradhan sign, no point tenderness over McBurney's point, non-distended. No masses. Negative psoas sign Extremities: Normal to insepction and palpation, [no] edema and no deformity : Patient declined Skin: Warm and dry. No rash Neurologic: Alert and appropriate. No gross focal neuro deficit; face symmetric. Speech normal. Moves all extremities equally gait normal, cerebellar normal Back: Normal to inspection. No bony tenderness to palpation, crepitus or step- off. No abnormal curvatures. Psych: Alert and oriented; normal thought content; no suicidal ideation. Interpretation Diagnostics Lab Results Interpretation Results Recent Impressions: ULTRASOUND - US PELVIS COMPLETE 11/21 1200 Report Impression - Status: SIGNED Entered: 11/23/202335 IMPRESSION: Enlarged right ovary containing multiple complex appearing follicles. Some of these could be hemorrhagic in nature. Doppler flow is seen in the ovary. There is also a moderate to large amount of complex free fluid in the pelvis, which could be hemorrhagic. Findings could represent a partially Follow-up pelvic ultrasound in 6-12 weeks recommended. Impression By: [email or web address] - Ha Abraham MD ULTRASOUND - DUP AB/PEL/SC [facility] 11/21 2695 Report Impression - Status: SIGNED Entered: 11/23/20236 IMPRESSION: Enlarged right ovary containing multiple complex appearing follicles. Some of these could be hemorrhagic in nature. Doppler flow is seen in the ovary. There is also a moderate to large amount of complex free fluid in the pelvis, which could be hemorrhagic. Findings could represent a partially Follow-up pelvic ultrasound in 6-12 weeks recommended. Impression By: Gm Abraham MD ULTRASOUND - US TRANSVAGINAL NON OB 11/21 7567 Report Impression - Status: SIGNED Entered: 11/23/2023 0036 IMPRESSION: Enlarged right ovary containing multiple complex appearing follicles. Some of these could be hemorrhagic in nature. Doppler flow is seen in the ovary. There is also a moderate to large amount of complex free fluid in the pelvis, which could be hemorrhagic. Findings could represent a partially Follow-up pelvic ultrasound in 6-12 weeks recommended. Impression By: Gm Abraham MD Lab Statement Laboratory studies reviewed and considered in the medical decision-making. HCG neg; CMP nl except Cl min elev 111, UA = Tr LE ;neg nit; prot tr; large blood (vb); Tr Ket; WBC 8.9, Hgb 10.7; plt 492; 49% Neut; 43% Lym Re-Evaluation MDM Free Text MDM Notes Free Text MDM Notes Discussed doing a CT A/P with the patient; she states the pain is basically the same location as it was when she had bleeding for the last 2 weeks has not abruptly changed she did not really feel like there would likely be an appendicitis or other surgical issue I explained I cannot completely exclude it without checking but I agree with her. She had CT at [facility] so she wanted to hold off on getting a CAT scan. We discussed the ultrasound results she says she already has an appointment with an AIR MOVING TECHNICIAN doctor within the next week. I will go ahead and give her another referral just so she will have a second name and discussed that with her. She is to return if she gets lightheaded or has any fever or worsening pain or vomiting. She has no point tenderness over McBurney's point. I recommended she resume iron at least for the next month. And I discussed importance of following up with OB and the fact that radiology recommends a repeat ultrasound in 6 to 12 weeks we discussed doing a pelvic exam. Patient declined Additional Text Differential diagnosis ovarian cyst, UTI, urolithiasis, appendicitis, enteritis, PID, AAA Re-Evaluation/Progress #1 Text/Dict Note Pain; vag bleeding is light--only a pad a day Time of Re-Eval 2339 Re-Eval Status Resolved Re-Evaluation/Progress #2 Text/Dict Note Pain is resolved however rice cleaning machine tender. No rebound. No McBurney's point point tenderness negative psoas not felt to be appendicitis. However, warned patient of diagnostic uncertainty asked her to please return if any fever any worsening pain any lightheadedness fainting etc. also if she has any kind of abdominal distention. Time of Eval 108 ED Course Medication(s) Ordered Medication(s) Ordered: Central Nervous System Agents Sig/Imelda Start time Last Medication Dose Route Stop Time Status Admin Ketorolac 30 MG X1ED STA 11/21 2217 DC 11/21 Tromethamine IV 11/21 Electrolytic, Caloric, And Jack Sig/Imelda Start time Last Medication Dose Route Stop Time Status Admin Sodium Chloride 500 ML BOLUS 11/21 2249 CAN IV 12/21 2250 MDM-Treatment/Evaluation ED Course Patient has a negative tilt I feel she is stable to go home sounds like this has been persistent for at least the last 2 weeks Patient Discharge Departure Vital Signs/Condition Vital Signs First Documented: Result Date Time Pulse Ox 100 11/22 2139 B/P 102/56 11/22 2139 B/P Mean 71 11/22 2139 O2 Delivery Room air 11/22 2139 Temp 36.8 11/22 2139 Pulse 65 11/22 2139 Resp 20 11/22 2139 Last Documented: Result Date Time Pulse Ox 99 11/22 0119 B/P 114/80 11/22 118 B/P Mean 91.5 11/22 118 Temp 36.6 11/22 011 Pulse 60 11/22 011 Resp 16 11/22 118 O2 Delivery Room air 11/22 2139 All vital signs available at the time of this entry have been reviewed. Condition Stable Clinical Impression Clinical Impression Primary Impression: Ruptured ovarian cyst Secondary Impressions: BILATERAL LOWER QUADRANT ABDOMINAL PAIN AND TENDERNESS, ENLARGED RIGHT OVARY WITH MULTIPLE COMPLEX APPEARING FOLLICLES, MILD ANEMIA, MODERATE TO LARGE AMOUNT OF COMPLEX FLUID IN PELVIS---LIKELY FROM HEMORRHAGIC CYST Time of Impression 010 Disposition Decision Discharge )( Discharged to Home Yes )( Time 010 )( Date 11/23/23 Discharge/Care Plan Counseled Regarding Diagnosis, Lab results, Imaging studies, Prescriptions, Need for follow-up, When to return to ED (Auto) Prescriptions Current Visit Scripts KETOROLAC (TORADOL) 10 MG PO Q6H PRN PRN PAIN KETOROLAC (TORADOL) 10 MG PO Q6H PRN PRN PAIN #12 TABS FERROUS SULFATE (FEOSOL) 325 MG PO DAILY FERROUS SULFATE (FEOSOL) 325 MG PO DAILY #30 TABS ACETAMINOPHEN/CODEINE (TYLENOL WITH CODEINE #3 300/30 MG) 1 TAB PO Q4H PRN PRN moderat to severe pain ACETAMINOPHEN/CODEINE (TYLENOL WITH CODEINE #3 300/30 MG) 1 TAB PO Q4H PRN PRN moderat to severe pain #12 TABS Patient Instructions Abdominal Pain, ED Anemia No Type Adult, ED Dysfunctional Uterine Bleeding, ED Ovarian Cyst Additional Instructions Follow up with your PCP or loom tuner in the next 5 days. Please return if symptoms worsen, you start getting lightheaded when standing, you develop a fever or have other concerns. If you do not have an OB, a referral is being provided. Referrals Provider Referral: Alok Carrizales MD Address: [address] [facility] [address] [place] [address] Provider Referral: Mandy Thomas MD Address: [address] [place] [address] [address] [place] [address] Provider Referral: Lesa Pena MD Follow-Up: 1 Week Address: [address] [place] [address] at 0219 RPT #:[id number] END OF REPORT [facility] 2023-10-30 23:04:00 [facility] ([facility]) EMERGENCY PROVIDER REPORT REPORT#:[id number] REPORT STATUS: Signed DATE:10/30/23 TIME: 2304 PATIENT: REIANLDO DOWNING UNIT #: [id number] ROOM/BED: AGE: 23 SEX: F PCP PHYS: Aj Siddiqi MD SERVICE AUTHOR: John Shepard MD LOCATION: [facility] * ALL edits or amendments must be made on the electronic/computer document * HPI- Female Free Text HPI Notes Free Text HPI Notes 23 yr old F hx of UTI last yr w/ pain w/ urination blood in urine no abdominal pain now or fever. General Initial Greet Date/Time 10/30/232248 Presentation Chief Complaint Dysuria Review of Systems ROS Statements All systems rev neg except as marked. Past Medical History - Adult Stated Complaint POSSIBLE UTI Allergies Coded Allergies: No Known Allergies (06/09/23) Home Medications Active Scripts FLUCONAZOLE 150 MG PO Q72HR FLUCONAZOLE 150 MG PO Q72HR #2 TAB Prov: 06/09/23 Pt reports no significant: Past medical history Smoking status for patients 13 years old or older: Never Smoker Physical Exam Vital Signs Vital Signs First Documented: Result Date Time Pulse Ox 99 10/29 2248 B/P 106/69 10/29 2248 B/P Mean 81 10/30 2247 O2 Delivery Room air 10/30 2247 Temp 36.9 10/29 224 Pulse 82 10/29 224 Resp 16 10/30 2247 Last Documented: Result Date Time Pulse Ox 99 10/29 2248 B/P 106/69 10/29 2248 B/P Mean 81 10/298 O2 Delivery Room air 10/30 2247 Temp 36.9 10/29 2248 Pulse 82 10/29 2248 Resp 16 10/30 2247 Review of Vital Signs Reviewed Focused PE Abdomen/GI Abdomen/GI Atraumatic, Soft, Non-tender, No guarding, No rebound Genitourinary General Exam deferred Interpretation Diagnostics Lab Results Interpretation Lab Statement Laboratory studies reviewed and considered in the medical decision-making. UA consistent w/ UTI Re-Evaluation MDM Free Text MDM Notes Free Text MDM Notes 23 yr old F w/ suspected UTI dysuria, blood in urine no tendernss check labs ua hcg rx macrobid. ED Course Medication(s) Ordered Medication(s) Ordered: Anti-Infective Agents Sig/Imelda Start time Last Medication Dose Route Stop Time Status Admin Nitrofurantoin 100 MG X1ED STA 10/29 2302 DC 10/29 Macrocrystals PO 10/30 2303 230 Patient Discharge Departure Vital Signs/Condition Vital Signs First Documented: Result Date Time Pulse Ox 99 10/29 2248 B/P 106/69 10/29 2248 B/P Mean 81 10/298 O2 Delivery Room air 10/30 2247 Temp 36.9 10/29 224 Pulse 82 05/21 2248 Resp 10/29 Last Documented: Result Date Time Pulse Ox 99 10/30 2247 B/P 106/69 10/30 2247 B/P Mean 81 10/30 2247 O2 Delivery Room air 10/30 2247 Temp 36.9 10/30 2247 Pulse 82 10/30 2247 Resp 10/29 All vital signs available at the time of this entry have been reviewed. Condition Stable Clinical Impression Clinical Impression Primary Impression: Acute UTI (urinary tract infection) Disposition Decision Discharge )( Discharged to Home Yes )( Time 2325 )( Date 10/30/23 Discharge/Care Plan Counseled Regarding Diagnosis, Lab results, Prescriptions (Auto) Prescriptions Current Visit Scripts NITROFURANTOIN/NITROFURAN MAC (MACROBID) 100 MG PO BID NITROFURANTOIN/NITROFURAN MAC (MACROBID) 100 MG PO BID #10 CAPS Until finished. Take with food. Prescriptions Reviewed Risks, Benefits, Alternative treatment Patient Instructions Urinary Tract Infections in Women at 2332 RPT #:[id number] END OF REPORT [facility] 2023-06-09 08:45:00 [facility] ([facility]) EMERGENCY PROVIDER REPORT REPORT#:[id number] REPORT STATUS: Signed DATE:06/09/23 TIME: 844 PATIENT: REINALDO DOWNING UNIT #: [id number] ROOM/BED: AGE: 23 SEX: F PCP PHYS: Aj Siddiqi MD SERVICE AUTHOR: Aj Siddiqi MD LOCATION: [facility] * ALL edits or amendments must be made on the electronic/computer document * HPI-General Illness General Initial Greet Date/Time 06/09/23 0825 Presentation Chief Complaint yeast infection Free Text HPI Notes Free Text HPI Notes 23-year-old female with no past medical history except for yeast infections a couple times a year who presents today for a symptoms of a yeast infection. Patient endorses she had sex a couple of days with her long-term partner, and it was a little rougher than usual, since then she initially had some burning and irritation, and now itching of her vaginal region. She has tried Azo's as well as boric acid suppositories thinking it was bacterial vaginosis initially, with no relief. No fever, no painful intercourse, no intercourse since the symptoms started, no nausea, no vomiting, no abdominal pain, no diarrhea, no constipation , no dysuria. She does not suspect any STIs, but wishes to be tested. Review of Systems ROS Statements All systems rev neg except as marked. Free Text ROS Notes Free Text ROS Notes All systems reviewed and negative except as noted in HPI Past Medical History - Adult Stated Complaint DOING A CHECK UP Allergies Coded Allergies: No Known Allergies (06/09/23) Pt reports no significant: Past medical history, Past surgical history, Family history Physical Exam Vital Signs Vital Signs First Documented: Result Date Time Pulse Ox 98 / 0810 B/P 126/75 / 0810 B/P Mean 92 / 0810 O2 Delivery Room air / 0810 Temp 37.1 / 0810 Pulse 86 / 0810 Resp 17 06/09 0810 Last Documented: Result Date Time Pulse Ox 98 / 0810 B/P 126/75 / 0810 B/P Mean 92 / 0810 O2 Delivery Room air / 0810 Temp 37.1 06/09 0810 Pulse 86 / 0810 Resp 17 / 0810 Review of Vital Signs Reviewed Free Text PE Notes Free Text PE Notes General/Const: awake, alert, no acute distress Eyes: EOMI, conjunctiva normal Ears/Nose/Throat: Atraumatic, airway patent Neck: Supple, no meningismus Respiratory: Breath sounds normal, breath sounds equal bilat, no respiratory distress, no rales, no rhonchi, no wheezing, no retractions, no stridor Cardiovascular: Regular rate and rhythm, no murmurs, no rubs Abdomen/GI: Soft, non-tender, no guarding, no rebound Lymphatic: No gross adenopathy Skin: Color normal, dry, intact Neurologic: Oriented X3, speech normal, no focal defects : normal external and internal vaginal exam, no lymphadenopathy, no adnexal tenderness, no adnexal masses, negative chandelier sign, no lesions or tears, though patient does have clumpy white discharge, no foul odor Interpretation Diagnostics Lab Results Interpretation Results Microbiology: Date/Time Procedure - Status Source Growth 06/09 843 GC DNA Probe - COMP CERVIX 06/09 843 Chlamydia DNA Probe (SEAMUS) - COMP CERVIX 06/09 843 Wet Prep - COMP VAGINAL Lab Statement Laboratory studies reviewed and considered in the medical decision-making. Re-Evaluation MDM ED Course Medication(s) Ordered Medication(s) Ordered: Anti-Infective Agents Sig/Imelda Start time Last Medication Dose Route Stop Time Status Admin Azithromycin 1,000 MG X1ED STA 06/09 843 DC 06/09 PO 06/09 844 0901 Ceftriaxone Sodium 500 MG X1ED STA 06/09 843 DC 06/09 Lidocaine HCl 1 ML IM 06/09 844 09 Free Text MDM Notes Free Text MDM Notes 23-year-old female who presents today for a yeast infection symptoms. Examination consistent with yeast infection, patient empirically treated for STIs. She has low risk and low suspicion. No signs of PID or other tears or complications. Will discharge with treatment for prescription for fluconazole, PCP/AIR MOVING TECHNICIAN follow-up, return precautions. MDM-Complexity Differential Diagnosis UTI, yeast infection, STI Ruled Out Diagnoses UTI Severity/Chronicity Evaluation acute MDM-Treatment/Evaluation Shared Decision-Making discussed empiric treatment vs waiting for STI, pt wanted empiric treatment. pros/cons discussed. Patient Discharge Departure Vital Signs/Condition Vital Signs First Documented: Result Date Time Pulse Ox 98 06/09 0810 B/P 126/75 / 0810 B/P Mean 92 / 0810 O2 Delivery Room air 06/09 0810 Temp 37.1 06/09 0810 Pulse 86 06/09 0810 Resp 17 06/09 0810 Last Documented: Result Date Time Pulse Ox 98 06/09 0810 B/P 126/75 06/09 0810 B/P Mean 92 06/09 0810 O2 Delivery Room air 06/09 0810 Temp 37.1 06/09 0810 Pulse 86 06/09 0810 Resp 17 06/09 0810 All vital signs available at the time of this entry have been reviewed. Condition Stable Clinical Impression Clinical Impression Primary Impression: Vaginal candidiasis Secondary Impressions: HISTORY OF YEAST INFECTIONS, Vaginal itching Time of Impression 907 Disposition Decision Discharge )( Discharged to Home Yes )( Time 907 )( Date 06/09/23 Discharge/Care Plan Counseled Regarding Diagnosis, Prescriptions, Need for follow-up, When to return to ED Prescriptions fluconazole (Auto) Prescriptions Current Visit Scripts FLUCONAZOLE (DIFLUCAN) 150 MG PO Q72HR FLUCONAZOLE (DIFLUCAN) 150 MG PO Q72HR #2 TAB Prescriptions Reviewed Risks, Benefits, Alternative treatment Patient Instructions ED Nicole Vaginitis Additional Instructions You have been seen today for presumed yeast infection. Please take the fluconazole today. If after 3 days her symptoms are not completely gone, take the second dose. Please follow-up with your AIR MOVING TECHNICIAN or your primary care doctor within the week. Return for any severe abdominal pain, pain with intercourse, fevers, intractable vomiting, or abnormal vaginal bleeding. Referrals Referral: your PCP or drying machine operator Follow-Up: 1 Week Departure Forms WORK/SCHOOL EXCUSE VARIABLE Discharge Note I have spoken with the patient and/or caregivers. I have explained the patient's condition, diagnoses and treatment plan based on the information available to me at this time. I have answered the patient's and/or caregiver's questions and addressed any concerns. The patient and/or caregivers have as good an understanding of the patient's diagnosis, condition and treatment plan as can be expected at this point. The vital signs have been stable. The patient's condition is stable and appropriate for discharge from the emergency department. The patient will pursue further outpatient evaluation with the primary care physician or other designated or consulting physician as outlined in the discharge instructions. The patient and/or caregivers are agreeable to this plan of care and follow-up instructions have been explained in detail. The patient and/or caregivers have received these instructions in written format and have expressed an understanding of the discharge instructions. The patient and/or caregivers are aware that any significant change in condition or worsening of symptoms should prompt an immediate return to this or the closest emergency department or a call to 911. at [phone] [facility] #:[id number] END OF REPORT [facility]
[2024-09-17 11:51] LABS: Specific Gravity 1.017 (1.005-1.030); Urine Bilirubin NEGATIVE (Negative); Urine Blood Negative (Negative); Urine Clarity Clear (Clear); Urine Color Light-Yellow (Yellow); Urine Glucose NEGATIVE (Negative); Urine Ketones NEGATIVE (Negative); Urine Microscopic Reflex YN NO UMIC; Urine Nitrite NEGATIVE (Negative); Urine Protein NEGATIVE (Negative); Urine Urobilinogen Normal (Normal)
[2024-09-17 11:56] LABS: Absolute Lymphocytes (CBC) 2.6 K/uL (0.7-4.9); Absolute Monocytes 0.4 K/uL (0.1-1.3); Absolute Neutrophil 4.3 K/uL (1.8-8.0); Basophils % 0.6 % (0-1.3); Eosinophils % 0.7 % (0-4.4); Hematocrit 36.6 % (36.0-45.0); Hemoglobin 12.5 g/dL (12.0-15.0); Lymphocytes % 35.7 % (15.3-44.8); MCH 30.2 pg (27.0-35.0); MCV 88.9 fL (80-100); MPV 8.4 fL (7.6-11.3); Monocytes % 5.6 % (3.3-12.3); Neutrophils % 57.4 % (41.7-73.7); Nucleated Red Blood Cells % 0.1 % (0-0); Platelets 441 thou/uL (152-406); RBC Red Blood Cell Count 4.12 M/uL (3.86-4.86); Red Cell Distribution Width 13.5 % (12.1-15.2)
[2024-09-17 11:58] LABS: Specific Gravity 1.017 (1.005-1.030)
[2024-09-17 12:01] LABS: Albumin 4.1 g/dL (3.4-5.0); Albumin/Globulin Ratio 1.1 (1.1-1.8); Anion Gap 7.9 mEq/L (5.0-15.0); Bilirubin Total 0.4 mg/dL (0.2-1.0); Globulin 3.9 g/dL (2.3-3.5); Potassium 3.9 mEq/L (3.5-5.1)
--- NOTE | 2024-09-17 12:52 | EDPHYS ---
Physician Documentation [facility] Name: Maddie Patrick Age: 24 yrs Sex: Female : 2000 Arrival Date: 09/17/2024 Time: 10:34 Bed 11 Private MD: ED Physician Arabella Gonzalez HPI: 09/17 12:52 This 24 yrs old Black Female presents to ER via Ambulatory with complaints of gb1 Dizziness, Nausea. 12:52 24-year-old -Polish female here with dizziness and nausea. Patient states that gb1 she woke up this morning and her palms were sweaty. When she got to work she states that she felt lightheaded. She has not eaten anything all day. She has no other medical problems besides PCOS. She denies cough, fever or chills.. 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 - Infectious Disease History:: Denies. - Social history:: Smoking status: Patient denies any tobacco usage or history of. Exam: 12:52 Constitutional: This is a well developed, well nourished patient who is awake, alert, gb1 and in no acute distress. Head/Face: Normocephalic, atraumatic. Eyes: Pupils equal round and reactive to light, extra-ocular motions intact. Lids and lashes normal. Conjunctiva and sclera are non-icteric and not injected. Cornea within normal limits. Periorbital areas with no swelling, redness, or edema. ENT: Nares patent. No nasal discharge, no septal abnormalities noted. Tympanic membranes are normal and external auditory canals are clear. Oropharynx with no redness, swelling, or masses, exudates, or evidence of obstruction, uvula midline. Mucous membranes moist. Neck: Trachea midline, no thyromegaly or masses palpated, and no cervical lymphadenopathy. Supple, full range of motion without nuchal rigidity, or vertebral point tenderness. No Meningismus. Chest/axilla: Normal chest wall appearance and motion. Nontender with no deformity. No lesions are appreciated. Cardiovascular: Regular rate and rhythm with a normal S1 and S2. No gallops, murmurs, or rubs. Normal PMI, no JVD. No pulse deficits. Respiratory: Lungs have equal breath sounds bilaterally, clear to auscultation and percussion. No rales, rhonchi or wheezes noted. No increased work of breathing, no retractions or nasal flaring. Abdomen/GI: Soft, non-tender, with normal bowel sounds. No distension or tympany. No guarding or rebound. No evidence of tenderness throughout. Back: No spinal tenderness. No costovertebral tenderness. Full range of motion. Skin: Warm, dry with normal turgor. Normal color with no rashes, no lesions, and no evidence of cellulitis. MS/ Extremity: Pulses equal, no cyanosis. Neurovascular intact. Full, normal range of motion. Neuro: Awake and alert, GCS 15, oriented to person, place, time, and situation. Cranial nerves II-XII grossly intact. Motor strength 5/5 in all extremities. Sensory grossly intact. Cerebellar exam normal. Normal gait. Vital Signs: 11:05 BP 123 / 69; Pulse 74; Resp 16; Temp 97.6; Pulse Ox 100% on R/A; Weight 69.85 kg; iw Height 4 ft. 11 in. ; Pain 0/10; 13:03 BP 132 / 75; Pulse 74; Resp 15; Pulse Ox 100% on R/A; Pain 0/10; ll1 11:05 Body Mass Index 31.10 (69.85 kg, 149.86 cm) iw 11:05 Pain Scale: Adult iw 13:03 Pain Scale: Adult ll1 MDM: 12:17 Medical Screening Exam initiated gb1 12:52 Data reviewed: vital signs, nurses notes, lab test result(s), CBC, electrolytes. ED gb1 course: 24-year-old female here with dizziness and nausea. Patient with a history of PCOS no other red flags on exam or by labs. Electrolytes within normal limits no white blood cell count I doubt that she has a focal pneumonia or UTI. Patient is not . I do recommend that she get followed up by her primary care doctor and at this time is that benign abdominal exam she otherwise is safe to go home and follow-up as an outpatient as needed.. 09/17 11:05 Order name: CBC with Diff; Complete Time: 12:51 gb1 09/17 11:05 Order name: CMP; Complete Time: 12:51 gb1 09/17 11:05 Order name: Test, Urine; Complete Time: 12:51 gb1 09/17 11:05 Order name: Urinalysis w/ reflexes gb1 09/17 11:05 Order name: IV Saline Lock; Complete Time: 11:25 gb1 09/17 11:05 Order name: Labs collected and sent; Complete Time: 11:25 gb1 Administered Medications: No medications were administered Disposition Summary: 09/17/24 12:51 Discharge Ordered Notes: Location: Home gb1 Condition: Stable gb1 Diagnosis - Nausea gb1 Followup: gb1 - With: Private Physician - When: - Reason: Re-evaluation by your physician Discharge Instructions: - Discharge Summary Sheet gb1 - Nausea, Adult gb1 Forms: - Medication Reconciliation Form gb1 - Antibiotic Education gb1 - Prescription Opioid Use gb1 - Patient Portal Instructions gb1 - Leadership Thank You Letter gb1 Prescriptions: - Zofran 4 mg Oral Tablet - take 1 tablet ORAL route every 12 hours As needed; 20 tablet; Refills: 0, gb1 Product Selection Permitted Signatures: Dispatcher [employer] Anayeli Echevarria, Arabella Alejandro RN, MD MD gb1
--- NOTE | 2024-09-17 12:52 | ER ---
Nurse's Notes [facility] Name: Maddie Patrick Age: 24 yrs Sex: Female : 2000 Arrival Date: 09/17/2024 Time: 10:34 Bed 11 Private MD: Diagnosis: Nausea Presentation: 09/17 11:05 Chief complaint: Patient states: shaky nausea, feeling faint, muscle stiffness started iw this morning , no fever, + mild diarrhea, eating and drinking well yesterday. Coronavirus screen: At this time, the client does not indicate any symptoms associated with coronavirus-19. Ebola Screen: No symptoms or risks identified at this time. Initial Sepsis Screen: Does the patient meet any 2 criteria? No. Patient's initial sepsis screen is negative. Does the patient have a suspected source of infection?. Risk Assessment: Do you want to hurt yourself or someone else?. Onset of symptoms was September 17, 2024. 11:05 Method Of Arrival: Ambulatory iw 11:05 Acuity: SHANT 3 iw Triage Assessment: 13:04 General: Appears in no apparent distress. Pain: Denies pain. GI: No deficits noted. ll1 JAILOR: 11:07 LMP 08/28/2024, unknown iw Historical: - Allergies: 11:07 No Known Allergies; iw - Home Meds: 11:07 Ozempic subcutaneous every week [Active]; iw - PMHx: 11:07 PCOS; iw - PSHx: 11:07 None; iw - Immunization history:: Adult Immunizations not up to date. - Infectious Disease History:: Denies. - Social history:: Smoking status: Patient denies any tobacco usage or history of. Screenin:04 [facility] ED Fall Risk Assessment (Adult) History of falling in the last 3 months, ll1 including since admission No falls in past 3 months (0 pts) Confusion or Disorientation No (0 pts) Intoxicated or Sedated No (0 pts) Impaired Gait No (0 pts) Mobility Assist Device Used No (0 pt) Altered Elimination No (0 pt) Score/Fall Risk Level 0 - 2 = Low Risk Maintained a safe environment, Hourly rounding (assess needs \T\ fall precautionary measures) done. Abuse screen: Denies threats or abuse. Nutritional screening: No deficits noted. Tuberculosis screening: No symptoms or risk factors identified. Assessment: 13:03 General: Appears in no apparent distress. Behavior is calm, cooperative, appropriate ll1 for age, Reports fatigue for. Neuro: Reports dizziness, weakness. GI: Abdomen is flat, Reports nausea. Vital Signs: 11:05 BP 123 / 69; Pulse 74; Resp 16; Temp 97.6; Pulse Ox 100% on R/A; Weight 69.85 kg; iw Height 4 ft. 11 in. ; Pain 0/10; 13:03 BP 132 / 75; Pulse 74; Resp 15; Pulse Ox 100% on R/A; Pain 0/10; ll1 11:05 Body Mass Index 31.10 (69.85 kg, 149.86 cm) iw 11:05 Pain Scale: Adult iw 13:03 Pain Scale: Adult ll1 ED Course: 10:37 Patient arrived in ED. al6 10:52 Arabella Gonzalez MD is Attending Physician. gb1 11:07 Triage completed. iw 11:08 Arm band placed on. iw 11:25 CBC with Diff Sent. bc6 11:25 CMP Sent. bc6 11:25 Initial lab(s) drawn, by mo, sent to lab. Inserted saline lock: 20 gauge in left wrist, bc6 using aseptic technique. Blood collected. Flushed with 10 mL NS. 13:03 Thomas Green, RN is Primary Nurse. ll1 13:03 No provider procedures requiring assistance completed. IV discontinued, intact, ll1 bleeding controlled, No redness/swelling at site. Pressure dressing applied. 13:05 Patient has correct armband on for positive identification. Bed in low position. ll1 Provided Education on: ER procedures and process. Administered Medications: No medications were administered Medication: 13:04 VIS not applicable for this client. ll1 Outcome: 12:51 Discharge ordered by . gb1 13:04 Discharged to home ambulatory, ll1 13:04 Condition: stable 13:04 Discharge instructions given to patient, Instructed on discharge instructions, follow up and referral plans. medication usage, Demonstrated understanding of instructions, follow-up care, medications, Prescriptions given X 1, 13:05 Patient left the ED. ll1 Signatures: Anayeli Webster RN SERJIO iw Thomas Green RN RN 1 Marita Watts 6 Arabella Gonzalez MD MD 1 Carrie Thompson al6
[2024-09-17 13:09] VITALS: TEMP 97.6; O2SAT 100
[2024-09-17 13:11] VITALS: BP 132/75
== END 2024-09-17 13:05 | disposition home or self-care (01) ==
LOC: ER 10:34
DX: R11.0 Nausea (principal)
CPT/HCPCS: 36415; 80053; 81003; 81025; 85025; 99284